=== PATIENT | female | born 1975 | race African-American/Black ===

== ENCOUNTER 2022-06-09 15:42 | Emergency (ER) | payer SELFPAY ==
[~2022-06-09] VITALS: Ht 175.3 cm; Wt 82.0 kg
[2022-06-09 16:16] VITALS: BP 136/84
[2022-06-09] MEDS ORDERED: ALBU18HF2 IH (17:28)
[2022-06-09] MEDS ORDERED: SULF1TAB48 PO (17:28)
[2022-06-09] MEDS ORDERED: DIVA-75 MT (17:28)
[2022-06-09] MEDS ORDERED: NAPR500T7 PO (17:28)
[2022-06-09] MEDS ORDERED: CEPH500T MT (17:28)
== END 2022-06-09 17:36 | disposition home or self-care (01) ==
LOC: ER 15:42
DX: L03.011 Cellulitis of right finger (principal); G40.909 Epilepsy, unspecified, not intractable, without status epilepticus
CPT/HCPCS: 99283